=== PATIENT | male | born 1970 | race Caucasian/White ===

== ENCOUNTER → 2020-05-18 17:57 | Outpatient (BNVA) | payer SELFPAY | PROVIDERS: PCP Nurse Practitioner Family; Visit Provider Nurse Practitioner | DX: R50.9 Fever, unspecified (principal) | CPT/HCPCS: 87400 ==

== ENCOUNTER 2020-08-28 10:46 | Emergency (ER) | payer SELFPAY ==
[2020-08-28] VITALS (8 sets, daily range): BP systolic 151–191; BP diastolic 76–103; PULSE 70–93; RESP 16–20; TEMP 36.7; O2SAT 93–100; BMI 36.2
--- NOTE | 2020-08-28 11:45 | XR_ITS ---
WS: [id number] PORTABLE CHEST HISTORY: chest pain COMPARISON: None available. Lungs are clear and well expanded. No pleural effusion or pneumothorax. Cardiac size: Normal. Mediastinum/Aorta: Normal mediastinum. No osseous abnormality seen. XR/XR chest 1V portable [id number] IMPRESSION: Unremarkable portable chest.
--- NOTE | 2020-08-28 11:45 | ECG_ITS ---
[facility] Test Date: 2020-08-28 Pat Name: Eran Humphrey Department: Room: Gender: Male Character Artist: : 1970 Requested By: Niurka Soto Order Number: [id number] Shawn MD: Jackson Mcnally M.D. Measurements Intervals [place] Rate: 86 P: 40 [place]: 166 QRS: -50 QRSD: 126 T: 8 QT: 395 QTc: 473 Interpretive Statements SINUS RHYTHM POSSIBLE LEFT ATRIAL ENLARGEMENT [-0.1mV P WAVE IN V1/V2] LEFT ANTERIOR FASCICULAR BLOCK [QRS AXIS <= -45, QR IN I, RS IN II] No previous ECG available for comparison Electronically Signed On 08-28-2020 17:10:15 GAS USAGE METER CLERK by Jackson Mcnally M.D. [id number]
--- NOTE | 2020-08-28 13:31 | ED_ITS ---
HPI - Headache General: Chief Complaint: Headache Stated Complaint: Nervous/Headache/chest feeling off Time Seen by Provider: 08/28/20 13:13 History of Present Illness: HPI Narrative: 49-year-old male presents emergency room with complaint of headache. Is been getting progressively worse is not any difficulty speech or swallowing states his vision is a little blurry just generally feels off he does not usually have headaches. He states that since he had Covid in April he is chronically had headaches but prior to that had no issues. Is not had any shortness of breath not had any chest pain not had any abdominal pain. He is not currently on any antihypertensives or any other medications. Is not routinely use large amounts of caffeine or energy drinks. MD elicited complaint: headache Pertinent past history: other (COVID-09 May 2020) Onset description: gradually Location: left, temporal and occipital Severity: severe Quality & Timing: throbbing Exacerbating factors: none Relieving factors: nothing Associated symptoms: Deny chest pain, confusion, cough, diaphoresis, eye pain, eye redness, fever(s), lightheadedness, loss of vision, malaise, nausea, neck stiffness, numbness, paresthesias, photophobia, pre-syncope, rash, seizures, short of breath, sound sensitivity, syncope, vomiting or weakness Treatments prior to arrival: none Review of Systems Const: Denies: fever(s), malaise or diaphoresis ENMT: Denies: throat pain, ear or mastoid pain, nasal discharge or nasal congestion Card: Denies: chest pain, lightheadedness, syncope or pre-syncope Resp: Denies: dyspnea, productive cough or non-productive cough GI: Denies: nausea or vomiting : Denies: flank pain, dysuria, urinary frequency or urinary urgency Skin/Breast: Denies: rash Neuro: Denies: confusion PFSH ED PFSH: Social History Smoking and tobacco status: never smoked Physical Exam Const: COMMON NORMALS: no acute distress GENERAL APPEARANCE: cooperative an d comfortable ORIENTATION/CONSCIOUSNESS: Yes awake, Yes oriented to person, Yes oriented to place and Yes oriented to time HENMT: COMMON NORMALS: normocephalic, atraumatic and hearing grossly normal bilaterally HEAD & SCALP: normocephalic and atraumatic Eye: COMMON NORMALS: Equal, round and reactive pupils present, EOMs intact bilaterally, conjunctivae normal and no scleral icterus CONJUNCTIVA: Yes conjunctivae normal PUPIL: Yes Equal, round and reactive pupils present DIRECT OPHTHALMOSCOPY: No photophobia Neck/C-Spine: COMMON NORMALS: full ROM, no lymphadenopathy, supple and no JVD Lymph: LYMPHATIC: no lymphadenopathy noted and no lymphedema noted Resp: COMMON NORMALS: normal respiratory effort, No retractions, No use of accessory muscles and clear to auscultation bilaterally AUSCULTATION: clear to auscultation bilaterally Cardio: COMMON NORMALS: no JVD, regular rate, regular rhythm and No murmurs present (Cardio) RATE: regular rate RHYTHM: regular rhythm GI: COMMON NORMALS: Soft to palpation and No hepatosplenomegaly present AUSCULTATION: Yes normoactive bowel sounds PALPATION: Yes Soft to palpation, No Tenderness to palpation present (GI), No Guarding due to palpation present (GI) and Yes No hepatosplenomegaly present Extremity: COMMON NORMALS: normal to inspection, capillary refill normal, no clubbing, cyanosis or edema, no calf tenderness and no pedal edema Neuro: SENSORIUM/ORIENTATION: Yes oriented to person, Yes oriented to place and Yes oriented to time Skin: COMMON NORMALS: no rashes or lesions noted GENERAL SKIN EXAM: no rashes or lesions noted Course Vital Signs: Vital signs: Vital Signs Temperature 98.0 F 08/28/20 10:53 Pulse Rate 72 08/28/20 16:40 Respiratory Rate 18 08/28/20 16:40 Blood Pressure 152/77 08/28/20 16:40 Pulse Oximetry 98 08/28/20 16:40 MDM - Headache MDM Narrative: Medical decision making narrative: Blood pressure and headache improved. Will discharge home on amlodipine and metoprolol follow-up with his primary care doctor within the next week. If recurs return to the emergency room. Lab Data: Labs: Lab Results 08/28/20 08/28/20 08/28/20 Range/Units 13:34 13:34 13:34 WBC 8.5 (4.0-10.0) 10^3/ uL RBC 5.71 H (4.1-5.3) 10^6/u L Hgb 16.0 (11.7-16.6) g/dL Hct 48.4 (42.0-52.0) % MCV 84.8 (80-94) fL MCH 28.0 (28.0-34.0) pg MCHC 33.1 (30.0-36.0) g/dL RDW 12.5 (12.1-15.1) % Plt Count 259 (130-400) 10^3/c mm MPV 9.9 (7.4-10.4) fL Neut % (Auto) 70.8 % Lymph % (Auto) 20.0 % [place] % (Auto) 6.6 % Eos % (Auto) 1.6 % Baso % (Auto) 0.6 % Neut # (Auto) 6.02 (1.8-7.7) 10^3/u L Lymph # (Auto) 1.7 (0.8-4.8) 10^3/u L [place] # (Auto) 0.6 (0.2-0.9) 10^3/u L Eos # (Auto) 0.1 (0.0-0.8) 10^3/u L Baso # (Auto) 0.1 (0.0-0.1) 10^3/u L Nucleated RBC % (a uto) 0 % Nucleated RBCs # 0.0 /100WBC Sodium 140 (136-145) mmol/L Potassium 3.6 (3.5-5.1) mmol/L Chloride 103 (98-107) mmol/L Carbon Dioxide 26 (22-29) mmol/L Anion Gap 14.6 (5-19) BUN 11 (6-20) mg/dL Creatinine 0.7 (0.7-1.2) mg/dL GFR Calculation 119.9 (90-130) mL/min Glucose 123 H (65-115) mg/dL Calculated Osmolal ity 291 (285-295) mOsm/k g Calcium 9.5 (8.5-10.5) mg/dL Total Bilirubin 0.5 (0.15-1.2) mg/dL AST 16 (0-40) U/L ALT 21 (0-41) U/L Alkaline Phosphata se 92 (40-130) IU/L Troponin T Baselin e 6 (0-15) ng/L Troponin T 120 Min [place] (0-15) ng/L Delta Troponin T (0-10) ABS# Total Protein 7.3 (6.6-8.7) g/dL Albumin 4.6 (3.5-5.2) g/dL Globulin 2.7 (1.3-4.6) g/dL Urine Opiates Scre en (Negative) ng/mL Ur Barbiturates Sc reen (Negative) ng/mL Ur Phencyclidine S crn (Negative) ng/mL Ur Amphetamines Sc reen (Negative) ng/mL U Benzodiazepines Scrn (Negative) ng/mL Urine Cocaine Scre en (Negative) ng/mL U Marijuana (THC) Screen (Negative) ng/mL 08/28/20 08/28/20 Range/Units 13:53 15:34 WBC (4.0-10.0) 10^3/ uL RBC (4.1-5.3) 10^6/u L Hgb (11.7-16.6) g/dL Hct (42.0-52.0) % MCV (80-94) fL MCH (28.0-34.0) pg MCHC (30.0-36.0) g/dL RDW (12.1-15.1) % Plt Count (130-400) 10^3/c mm MPV (7.4-10.4) fL Neut % (Auto) % Lymph % (Auto) % [place] % (Auto) % Eos % (Auto) % Baso % (Auto) % Neut # (Auto) (1.8-7.7) 10^3/u L Lymph # (Auto) (0.8-4.8) 10^3/u L [place] # (Auto) (0.2-0.9) 10^3/u L Eos # (Auto) (0.0-0.8) 10^3/u L Baso # (Auto) (0.0-0.1) 10^3/u L Nucleated RBC % (a uto) % Nucleated RBCs # /100WBC Sodium (136-145) mmol/L Potassium (3.5-5.1) mmol/L Chloride (98-107) mmol/L Carbon Dioxide (22-29) mmol/L Anion Gap (5-19) BUN (6-20) mg/dL Creatinine (0.7-1.2) mg/dL GFR Calculation (90-130) mL/min Glucose (65-115) mg/dL Calculated Osmolal ity (285-295) mOsm/k g Calcium (8.5-10.5) mg/dL Total Bilirubin (0.15-1.2) mg/dL AST (0-40) U/L ALT (0-41) U/L Alkaline Phosphata se (40-130) IU/L Troponin T Baselin e (0-15) ng/L Troponin T 120 Min [place] 6.00 (0-15) ng/L Delta Troponin T 0 (0-10) ABS# Total Protein (6.6-8.7) g/dL Albumin (3.5-5.2) g/dL Globulin (1.3-4.6) g/dL Urine Opiates Scre en Negative (Negative) ng/mL Ur Barbiturates Sc reen Negative (Negative) ng/mL Ur Phencyclidine S crn Negative (Negative) ng/mL Ur Amphetamines Sc reen Negative (Negative) ng/mL U Benzodiazepines Scrn Negative (Negative) ng/mL Urine Cocaine Scre en Negative (Negative) ng/mL U Marijuana (THC) Screen Negative (Negative) ng/mL Discharge Plan Discharge Patient Disposition: Home Clinical Impression: Headache, Hypertension Condition: Stable Prescriptions: New metoprolol succinate 25 mg capsule,sprinkle,ER 24hr 25 mg PO DAILY Qty: 14 RF: 0 amlodipine 5 mg tablet 5 mg PO DAILY Qty: 14 RF: 0 promethazine 25 mg tablet 25 mg PO Q6H PRN (Reason: prn headache) Qty: 14 RF: 0 No Action No Known Home Medications RF: 0 Discharge Orders: Discharge ED (Routine); Ordered 08/28/20 Ordered By: Nolan Abad Referrals: Tomasa Alves FNP [Primary Care Provider] - Discharge Diet: Usual diet Discharge Activity: Increase activity as tolerated Coding Level of Care Code ED Mix House Operator for Isidro Fwd Exam Comprehensive
[2020-08-28 13:43] LABS: Basophils # 0.1 10^3/uL (0.0-0.1); Basophils % 0.6 %; Eosinophils # 0.1 10^3/uL (0.0-0.8); Eosinophils % 1.6 %; Hematocrit 48.4 % (42.0-52.0); Lymphocytes # 1.7 10^3/uL (0.8-4.8); Mean Corpuscular HGB Conc 33.1 g/dL (30.0-36.0); Mean Corpuscular Volume 84.8 fL (80-94); Mean Platelet Volume 9.9 fL (7.4-10.4); Monocytes # 0.6 10^3/uL (0.2-0.9); Monocytes % 6.6 %; Neutrophils # 6.02 10^3/uL (1.8-7.7); Neutrophils % 70.8 %; Nucleated Red Blood Cells % 0 %; Platelet Count 259 10^3/cmm (130-400); Red Blood Count 5.71 10^6/uL (4.1-5.3); Red Cell Distribution Width 12.5 % (12.1-15.1); White Blood Count 8.5 10^3/uL (4.0-10.0)
--- NOTE | 2020-08-28 13:45 | ECG_ITS ---
[facility] Test Date: 2020-08-28 Pat Name: Eran Humphrey Department: Room: Gender: Male Detasseler: : 1970 Requested By: Niurka Soto Order Number: [id number] Shawn MD: Jackson Mcnally M.D. Measurements Intervals [place] Rate: 79 P: 57 NE: 163 QRS: -41 QRSD: 126 T: 38 QT: 390 QTc: 448 Interpretive Statements SINUS RHYTHM POSSIBLE LEFT ATRIAL ENLARGEMENT [-0.1mV P WAVE IN V1/V2] LEFT AXIS DEVIATION [QRS AXIS < -30] MODERATE INTRAVENTRICULAR CONDUCTION DELAY [110+ ms QRS DURATION] Compared to ECG 08/28/2020 12:26:40 Left-axis deviation now present Intraventricular conduction delay now present Left anterior fascicular block no longer present Electronically Signed On 08-28-2020 17:21:04 MAT MACHINE TENDER by Jackson Mcnally M.D. [id number]
[2020-08-28] MEDS: amlodipine 5 mg Tablet PO (13:49)
[2020-08-28] MEDS: metoprolol tartrate 25 mg Tablet PO (13:50)
[2020-08-28] MEDS: metoprolol tartrate 1 mg/1 mL SDV 5 mL 5 MG IV (13:50)
[2020-08-28 13:59] LABS: Alanine Aminotransferase 21 U/L (0-41); Albumin Level 4.6 g/dL (3.5-5.2); Alkaline Phosphatase 92 IU/L (40-130); Anion Gap 14.6 (5-19); Aspartate Amino Transferase 16 U/L (0-40); Blood Urea Nitrogen 11 mg/dL (6-20); Calcium 9.5 mg/dL (8.5-10.5); Carbon Dioxide 26 mmol/L (22-29); Chloride 103 mmol/L (98-107); Globulin 2.7 g/dL (1.3-4.6); Glomerular Filtration Rate 119.9 mL/min (90-130); Glucose 123 mg/dL (65-115); Osmolality Calculated 291 mOsm/kg (285-295); Potassium 3.6 mmol/L (3.5-5.1); Sodium 140 mmol/L (136-145); Total Bilirubin 0.5 mg/dL (0.15-1.2); Total Protein 7.3 g/dL (6.6-8.7)
[2020-08-28 14:03] LABS: Troponin(5th) Baseline 6 ng/L (0-15)
[2020-08-28 14:31] LABS: Amphetamines Screen Urine Negative (Negative); Barbiturates Screen Urine Negative (Negative); Benzodiazepines Screen Urine Negative (Negative); Cocaine Screen Urine Negative (Negative); Opiate Screen Urine Negative (Negative); PCP Screen Urine Negative (Negative); THC Screen Urine Negative (Negative)
--- NOTE | 2020-08-28 14:56 | CT_ITS ---
WS: [id number] CT HEAD NONCONTRAST HISTORY: new onset headache TECHNIQUE: Contiguous axial imaging performed through the brain in 2.5 mm imaging. Bone and soft tiss ue windows. Sagittal and coronal reformats reviewed. All CT scans at [facility] use at ast one of these dose optimization techniques: automated exposure control; mA and/or kV adjustment pe r patient size (includes targeted exams where dose is matched to clinical indication); or iterative r econstruction. DLP: 792.55 mGy.cm COMPARISON: None available. No acute intracranial hemorrhage, midline shift or mass effect. No atrophy or prior infarcts or herniation. Tiny lacunar infarct is remote in the LEFT basal ganglia . Ventricles: Normal size with no hydrocephalus. Paranasal sinuses: As visualized are clear. Mastoid air cells: Well pneumatized. Calvarium and scalp: Skull is intact with no soft tissue edema or swelling. CT/CT head wo con* [id number] IMPRESSION: 1. No acute infarct, hemorrhage or edema. 2. Remote lacunar infarct LEFT basal ganglia.
[2020-08-28] MEDS: ketorolac 30 mg/mL INJ IVP (15:14)
[2020-08-28 16:59] LABS: Troponin 5 2HR Delta 0 ABS# (0-10)
== END 2020-08-28 16:42 | disposition home or self-care (01) ==
PROVIDERS: Physician Assistant; Emergency Provider Family Medicine; PCP Nurse Practitioner Family
DX: R51.9 Headache, unspecified (principal); I10 Essential (primary) hypertension
CPT/HCPCS: 12345; 70450; 71045; 80053; 80306; 84484; 85025; 93005; 96374; 96375; 99282; 99284; J1885; J2270; J2550; J3490

== ENCOUNTER 2021-04-05 01:55 | Emergency (ER) | payer SELFPAY ==
[2021-04-05 01:58] VITALS: BP 186/93; PULSE 83; RESP 18; TEMP 36.9; O2SAT 98; BMI 36.2
--- NOTE | 2021-04-05 02:10 | CTR_ITS ---
PROCEDURE INFORMATION: Exam: CT Abdomen And Pelvis Without Contrast Exam date and time: 04/05/2021 2:10 AM Age: 50 years old Clinical indication: Abdominal pain; Right; Patient HX: C/O R flank pain; Additional info: Right flank pain, history of kidney stones TECHNIQUE: Imaging protocol: Computed tomography of the abdomen and pelvis without contrast. Radiation optimization: All CT scans at this facility use at least one of these dose optimization techniques: automated exposure control; mA and/or kV adjustment per patient size (includes targeted exams where dose is matched to clinical indication); or iterative reconstruction. COMPARISON: CT Abdomen/Pelvis Renal [id number] 07/21/2019 5:41 PM RADIATION DOSE METRICS: Total DLP (mGy-cm): 2107.81 FINDINGS: Lungs: Calcified granulomata in the lung bases again evident. Liver: Liver still unremarkable. Gallbladder and bile ducts: Cholecystectomy again evident. Still no biliary ductal dilatation. Pancreas: Pancreas still unremarkable. Spleen: Still no splenomegaly. Interval disappearance of the focus of decreased density from the anterior superior splenic margin and appearance of the 6 mm focus of decreased density in the lower lateral splenic margin. Adrenal glands: Still no adrenal mass. Kidneys and ureters: Interval disappearance of a very small stone from the upper left kidney. Still no left hydronephrosis. Interval disappearance of a small stone from the upper right kidney and appearance of a tiny stone in this area. Interval [id number] right hydronephrosis, stranding in the right perirenal fat and moderate right ureteral dilatation down to the level of the 4.2 x 2.5 mm stone in the very distal right ureter. Stomach and bowel: Continued increased fat in the mehta of the gastric antrum, proximal duodenum and terminal ileum. Still no obstruction. Appendix: Continued normal appendix. Intraperitoneal space: Still no free air. Vasculature: Continued minimal atherosclerosis. Still no aortic aneurysm. Two right renal arteries still likely. Lymph nodes: Continued small calcified node along the right side of the distal esophagus. Interval decrease in size to normal of a right external iliac node. Interval slight haziness in the mesentery, except for thin zones of lucency around some of the mesenteric nodes; continued slight enlargement of some of the mesenteric nodes. No new suspicious nodes. Urinary bladder: Unremarkable as visualized. Reproductive: Continued prostatic prominence. Bones/joints: Old compression fractures again evident. Continued degeneration of several discs. Soft tissues: Unremarkable. CT/CT kidney stone [id number] IMPRESSION: 1. Interval appearance of the 4.2 x 2.5 mm stone in the very distal right ureter causing mild to moderate obstruction. Changes in the nephrolithiasis detailed above. 2. Interval disappearance of 1 focus of decreased density from the spleen and appearance of a smaller focus elsewhere in the spleen, significance unclear. Consider evaluation with non-emergent MRI. 3. Interval appearance of findings suggestive of mesenteric adenitis. 4. Continued increased fat in the mehta of the gastric antrum, proximal duodenum and terminal ileum raising the possibility of chronic inflammation. Other findings detailed above. Radiation Dose CTDIVOL = (mGy): DLP = 2107.81 (mGy-cm)
--- NOTE | 2021-04-05 02:11 | ED_ITS ---
Documented by User: ALEXANDER Hilario 04/05/21 03:19 HPI - Abdominal Pain General: Chief Complaint: Abdominal Pain Stated Complaint: LOWER R BACK AND ABD PAIN Time Seen by Provider: 04/05/21 02:10 History of Present Illness: HPI narrative: Patient is a 50-year-old male comes to the ED with right flank pain. First onset of symptoms started last Monday, March 31. Resolved after couple hours and patient has a prescription for ketorolac pain as needed and tamsulosin daily. Patient then had another onset of's right flank pain yesterday that resolved again after couple hours. Today at midnight he woke up with severe right flank pain radiating down into her right groin again. Pain is rated an 8 out of 10. Patient says he took a dose of ketorolac at 1 AM before coming to the ED. Denies any fever, chills, nausea/vomiting, bladder or bowel symptoms. Patient says he has a history of kidney stones and says that the symptoms are similar to past kidney stones. Associated Symptoms: Denies chills, constipation, diarrhea, dysuria, fever(s), hematochezia, hematuria, nausea and vomiting Review of Systems Const: Denies: fever(s), chills or fatigue Eyes: Denies: change in vision or eye discomfort ENMT: Denies: throat pain, odynophagia, nasal discharge or nasal congestion Card: Denies: chest pain, palpitations, edema, swelling of feet/ankles, dyspnea on exertion or orthopnea Resp: Denies: dyspnea, productive cough or non-productive cough GI: Denies: abdominal pain, nausea, vomiting, diarrhea, constipation or hematochezia : Reports: flank pain (Right flank and pain radiates in the right groin.); Denies: difficulty urinating, dysuria or hematuria Musc: Denies: neck pain, back pain or extremity swelling Skin/Breast: Denies: rash or new lesions Neuro: Denies: headache(s), numbness in extremities or weakness in extremities PFSH ED PFSH: Social History Smoking and tobacco status: never smoked Physical Exam Const: COMMON NORMALS: patient oriented x3 and alert GENERAL APPEARANCE: cooperative, comfortable and in distress (Patient appears in pain) HENMT: COMMON NORMALS: normocephalic HEAD & SCALP: normocephalic MOUTH: Normal oral and palatal mucosa present THROAT: posterior oropharynx normal and uvula midline Eye: COMMON NORMALS: Equal, round and reactive pupils present PUPIL: Yes Equal, round and reactive pupils present Neck/C-Spine: COMMON NORMALS: supple GENERAL: Yes normal visual inspection Resp: COMMON NORMALS: normal respiratory effort, No retractions, No use of accessory muscles and clear to auscultation bilaterally AUSCULTATION: clear to auscultation bilaterally Cardio: COMMON NORMALS: regular rate, regular rhythm, S1 normal heart sound present, S2 normal heart sound present, No gallops present (Cardio), No clicks present (Cardio), No murmurs present (Cardio) and Peripheral pulses 2+ throughout RATE: regular rate RHYTHM: regular rhythm HEART SOUNDS: S1 normal heart sound present and S2 normal heart sound present PERIPHERAL PULSES: Peripheral pulses 2+ throughout GI: COMMON NORMALS: Normal to inspection, nondistended, normoactive bowel sounds present, Soft to palpation, non-tender and no masses INSPECTION: Yes central obesity PALPATION: Yes Soft to palpation : BLADDER/KIDNEY EXAM: Yes CVA tenderness on the right Back/Pelvis: GENERAL BACK: Yes CVA tenderness Extremity: COMMON NORMALS: normal to inspection Neuro: COMMON NORMALS: patient oriented x3 SENSORIUM/ORIENTATION: Yes alert Skin: GENERAL SKIN EXAM: dry skin Course Vital Signs: Vital signs: Vital Signs Temperature 98.4 F 04/05/21 01:58 Pulse Rate 81 04/05/21 03:15 Respiratory Rate 18 04/05/21 03:37 Blood Pressure 142/95 04/05/21 03:15 Pulse Oximetry 97 04/05/21 03:37 MDM - Abdominal Pain MDM Narrative: Medical decision making narrative: I performed the initial history physical exam, lab work-up and imaging on patient. Then talked with Dr. Naranjo about patient case and signed care over to him before I left. Patient is a 50-year-old male comes to the ED with right flank pain. He has a history of kidney stones. Denies any dysuria or hematuria. Vital stable. Patient has some right CVA tenderness upon exam. Patient CBC and CMP were unremarkable. I told Dr. Naranjo UA and CT of the abdomen is pending and he will take over care of patient and handle discharge.-Arpit Sheffield PA-C Lab Data: Attestation: I reviewed the patient's lab results. Labs: Lab Results 04/05/21 04/05/21 04/05/21 Range/Units 02:10 02:10 02:30 WBC 8.2 (4.0-10.0) 10^3/ uL RBC 5.05 (4.1-5.3) 10^6/u L Hgb 14.4 (11.7-16.6) g/dL Hct 42.9 (42.0-52.0) % MCV 85.0 (80-94) fl MCH 28.5 (28.0-34.0) pg MCHC 33.6 (30.0-36.0) g/dL RDW 12.4 (12.1-15.1) % Plt Count 273 (130-400) 10^3/c mm MPV 10.0 (7.4-10.4) fL Neut % (Auto) 58.9 % Lymph % (Auto) 24.0 % [place] % (Auto) 10.8 % Eos % (Auto) 4.9 % Baso % (Auto) 0.9 % Neut # (Auto) 4.81 (1.8-7.7) 10^3/u L Lymph # (Auto) 2.0 (0.8-4.8) 10^3/u L [place] # (Auto) 0.9 (0.2-0.9) 10^3/u L Eos # (Auto) 0.4 (0.0-0.8) 10^3/u L Baso # (Auto) 0.1 (0.0-0.1) 10^3/u L Nucleated RBC % (a uto) 0 % Nucleated RBCs # 0.0 /100WBC Sodium 142 (136-145) mmol/L Potassium 3.5 (3.5-5.1) mmol/L Chloride 106 (98-107) mmol/L Carbon Dioxide 27 (22-29) mmol/L Anion Gap 12.5 (5-19) BUN 15 (6-20) mg/dL Creatinine 1.0 (0.7-1.2) mg/dL GFR Calculation 79.1 L (90-130) mL/min Glucose 123 H (65-115) mg/dL Calculated Osmolal ity 296 H (285-295) mOsm/k g Calcium 8.3 L (8.5-10.5) mg/dL Total Bilirubin 0.2 (0.15-1.2) mg/dL AST 16 (0-40) U/L ALT 15 (0-41) U/L Alkaline Phosphata se 91 (40-130) IU/L Total Protein 6.8 (6.6-8.7) g/dL Albumin 4.0 (3.5-5.2) g/dL Globulin 2.8 (1.3-4.6) g/dL Lipase 38 (13-60) U/L Urine Color Yellow (Yellow) Urine Appearance Sl hazy (CLEAR) Urine pH 8 H (5-7) Ur Specific Gravit y 1.015 (1.005-1.030) Urine Protein Neg (Negative) Urine Glucose (UA) Norm (Normal) Urine Ketones Negative (Negative) Urine Blood Neg (Negative) Urine Nitrate Negative (Negative) Urine Bilirubin Neg (Negative) Prot Sulfosalicyli c Acd Negative (Negative) Urine Urobilinogen Norm (Negative) mg/dL Ur Leukocyte Tena ase Negative (Negative) Urine RBC None (0-2) /hpf Urine WBC None (0-5) /hpf Ur Squamous Epith Cells None (0-5) /hpf Amorphous Sediment 2+ /hpf Urine Bacteria Trace (NONE) /hpf Discharge Plan Discharge Patient Disposition: Home Clinical Impression: Ureterolithiasis Condition: Stable Prescriptions: New Zofran 4 mg tablet 4 mg PO Q6H PRN (Reason: nausea and vomiting) Qty: 10 RF: 0 Percocet 7.5-325 mg tablet 1 tab PO Q6H PRN (Reason: pain) Qty: 10 RF: 0 No Action metoprolol succinate 25 mg capsule,sprinkle,ER 24hr 25 mg PO DAILY Qty: 14 RF: 0 amlodipine 5 mg tablet 5 mg PO DAILY Qty: 14 RF: 0 promethazine 25 mg tablet 25 mg PO Q6H PRN (Reason: prn headache) Qty: 14 RF: 0 Discharge Orders: Discharge ED (Routine); Ordered 04/05/21 Ordered By: Brian Naranjo Referrals: Cameron Sherman MD [Physician] - 1-3 days Tomasa Alves FNP [Primary Care Provider] - Patient Instructions: Kidney Stones (ED), Opioid Safety Activity Restrictions/Additional Instructions: Continue your ketorolac, as needed for pain. Continue your tamsulosin daily. You may use new prescriptions of medication as needed for pain and nausea as well. You should get a call from case management regarding a urology appointment. Return to the emergency department for vomiting liquids or medications, uncontrolled pain despite treatment, fever greater than 100, any other concerning symptoms. Coding Level of Care Code ED Liner Reroll Tender for Chg Fwd Exam Comprehensive Documented by User: Brian Naranjo DO 04/05/21 04:24 HPI - Abdominal Pain General: Chief Complaint: Abdominal Pain Stated Complaint: LOWER R BACK AND ABD PAIN Time Seen by Provider: 04/05/21 02:10 [facility] ED PFSH: Social History Smoking and tobacco status: never smoked Course Vital Signs: Vital signs: Vital Signs Temperature 98.4 F 04/05/21 01:58 Pulse Rate 81 04/05/21 03:15 Respiratory Rate 18 04/05/21 03:37 Blood Pressure 142/95 04/05/21 03:15 Pulse Oximetry 97 04/05/21 03:37 MDM - Abdominal Pain MDM Narrative: Medical decision making narrative: 50-year-old male with right- sided flank and abdominal pain. Checked out to me by Mr. Nettie RODRIGUEZ. I agree with his history, evaluation and management. Pain controlled now after IV fentanyl. CT reveals 4.2 x 2.5 mm stone in the very distal right ureter. He has ketorolac at home as well as tamsulosin. He will be prescribed Percocet and Zofran as well. Urinalysis reveals no evidence of infection. Creatinine is 1. White blood cell count is 8.2. Lab Data: Labs: Lab Results 04/05/21 04/05/21 04/05/21 Range/Units 02:10 02:10 02:30 WBC 8.2 (4.0-10.0) 10^3/ uL RBC 5.05 (4.1-5.3) 10^6/u L Hgb 14.4 (11.7-16.6) g/dL Hct 42.9 (42.0-52.0) % MCV 85.0 (80-94) fl MCH 28.5 (28.0-34.0) pg MCHC 33.6 (30.0-36.0) g/dL RDW 12.4 (12.1-15.1) % Plt Count 273 (130-400) 10^3/c mm MPV 10.0 (7.4-10.4) fL Neut % (Auto) 58.9 % Lymph % (Auto) 24.0 % [place] % (Auto) 10.8 % Eos % (Auto) 4.9 % Baso % (Auto) 0.9 % Neut # (Auto) 4.81 (1.8-7.7) 10^3/u L Lymph # (Auto) 2.0 (0.8-4.8) 10^3/u L [place] # (Auto) 0.9 (0.2-0.9) 10^3/u L Eos # (Auto) 0.4 (0.0-0.8) 10^3/u L Baso # (Auto) 0.1 (0.0-0.1) 10^3/u L Nucleated RBC % (a uto) 0 % Nucleated RBCs # 0.0 /100WBC Sodium 142 (136-145) mmol/L Potassium 3.5 (3.5-5.1) mmol/L Chloride 106 (98-107) mmol/L Carbon Dioxide 27 (22-29) mmol/L Anion Gap 12.5 (5-19) BUN 15 (6-20) mg/dL Creatinine 1.0 (0.7-1.2) mg/dL GFR Calculation 79.1 L (90-130) mL/min Glucose 123 H (65-115) mg/dL Calculated Osmolal ity 296 H (285-295) mOsm/k g Calcium 8.3 L (8.5-10.5) mg/dL Total Bilirubin 0.2 (0.15-1.2) mg/dL AST 16 (0-40) U/L ALT 15 (0-41) U/L Alkaline Phosphata se 91 (40-130) IU/L Total Protein 6.8 (6.6-8.7) g/dL Albumin 4.0 (3.5-5.2) g/dL Globulin 2.8 (1.3-4.6) g/dL Lipase 38 (13-60) U/L Urine Color Yellow (Yellow) Urine Appearance Sl hazy (CLEAR) Urine pH 8 H (5-7) Ur Specific Gravit y 1.015 (1.005-1.030) Urine Protein Neg (Negative) Urine Glucose (UA) Norm (Normal) Urine Ketones Negative (Negative) Urine Blood Neg (Negative) Urine Nitrate Negative (Negative) Urine Bilirubin Neg (Negative) Prot Sulfosalicyli c Acd Negative (Negative) Urine Urobilinogen Norm (Negative) mg/dL Ur Leukocyte Tena ase Negative (Negative) Urine RBC None (0-2) /hpf Urine WBC None (0-5) /hpf Ur Squamous Epith Cells None (0-5) /hpf Amorphous Sediment 2+ /hpf Urine Bacteria Trace (NONE) /hpf Discharge Plan Discharge Patient Disposition: Home Clinical Impression: Ureterolithiasis Condition: Stable Prescriptions: New Zofran 4 mg tablet 4 mg PO Q6H PRN (Reason: nausea and vomiting) Qty: 10 RF: 0 Percocet 7.5-325 mg tablet 1 tab PO Q6H PRN (Reason: pain) Qty: 10 RF: 0 No Action metoprolol succinate 25 mg capsule,sprinkle,ER 24hr 25 mg PO DAILY Qty: 14 RF: 0 amlodipine 5 mg tablet 5 mg PO DAILY Qty: 14 RF: 0 promethazine 25 mg tablet 25 mg PO Q6H PRN (Reason: prn headache) Qty: 14 RF: 0 Discharge Orders: Discharge ED (Routine); Ordered 04/05/21 Ordered By: Brian Naranjo Referrals: Cameron Sherman MD [Physician] - 1-3 days Tomasa Alves FNP [Primary Care Provider] - Patient Instructions: Kidney Stones (ED), Opioid Safety Activity Restrictions/Additional Instructions: Continue your ketorolac, as needed for pain. Continue your tamsulosin daily. You may use new prescriptions of medication as needed for pain and nausea as well. You should get a call from case management regarding a urology appointment. Return to the emergency department for vomiting liquids or medications, uncontrolled pain despite treatment, fever greater than 100, any other concerning symptoms. Coding Level of Care Code ED Liner Reroll Tender for Isidro Fwd Exam Comprehensive
[2021-04-05 02:24] LABS: Basophils # 0.1 10^3/uL (0.0-0.1); Basophils % 0.9 %; Eosinophils # 0.4 10^3/uL (0.0-0.8); Eosinophils % 4.9 %; Hematocrit 42.9 % (42.0-52.0); Hemoglobin 14.4 g/dL (11.7-16.6); Mean Corpuscular HGB Conc 33.6 g/dL (30.0-36.0); Mean Corpuscular Hemoglobin 28.5 pg (28.0-34.0); Monocytes # 0.9 10^3/uL (0.2-0.9); Monocytes % 10.8 %; Neutrophils # 4.81 10^3/uL (1.8-7.7); Neutrophils % 58.9 %; Nucleated Red Blood Cells % 0 %; Platelet Count 273 10^3/cmm (130-400); Red Blood Count 5.05 10^6/uL (4.1-5.3); Red Cell Distribution Width 12.4 % (12.1-15.1); White Blood Count 8.2 10^3/uL (4.0-10.0)
[2021-04-05] MEDS: sodium chloride 0.9% 500 ML 999 ML IV (02:37)
[2021-04-05] MEDS: ondansetron 2 mg/ML SDV 2 mL 4 MG IVP (02:37)
[2021-04-05 02:38] VITALS: RESP 20; O2SAT 97
[2021-04-05] MEDS: fentaNYL 50 mcg/mL INJ 2mL IVP (02:38)
[2021-04-05 02:48] LABS: Alanine Aminotransferase 15 U/L (0-41); Alkaline Phosphatase 91 IU/L (40-130); Aspartate Amino Transferase 16 U/L (0-40); Blood Urea Nitrogen 15 mg/dL (6-20); Calcium 8.3 mg/dL (8.5-10.5); Carbon Dioxide 27 mmol/L (22-29); Chloride 106 mmol/L (98-107); Globulin 2.8 g/dL (1.3-4.6); Glomerular Filtration Rate 79.1 mL/min (90-130); Glucose 123 mg/dL (65-115); Lipase 38 U/L (13-60); Osmolality Calculated 296 mOsm/kg (285-295); Sodium 142 mmol/L (136-145); Total Bilirubin 0.2 mg/dL (0.15-1.2); Total Protein 6.8 g/dL (6.6-8.7)
[2021-04-05 03:11] LABS: Anion Gap 12.5 (5-19); Potassium 3.5 mmol/L (3.5-5.1)
[2021-04-05 03:14] LABS: Add Urine Culture? No; Amorphous Sediment Urine 2+ /hpf; Bacteria Urine TRACE /hpf; Bilirubin Urine Neg (Negative); Blood Urine Neg (Negative); Glucose Urine UA Norm (Normal); Ketones Urine Negative (Negative); Leukocyte Esterase Urine Negative (Negative); Nitrate Urine Negative (Negative); Protein Urine Neg (Negative); Specific Gravity, Urine 1.015 (1.005-1.030); Sulfosalicylic Acid Urine Negative (Negative); Urine Appearance SL Hazy (CLEAR); Urine Color Yellow (Yellow); Urobilinogen Urine Norm (Negative); pH Urine 8 (5-7)
[2021-04-05 03:15] VITALS: BP 142/95; PULSE 81; O2SAT 97
[2021-04-05 03:37] VITALS: RESP 18; O2SAT 97
[2021-04-05] MEDS: fentaNYL 50 mcg/mL INJ 2mL 100 MCG IVP (03:37)
[2021-04-05] MEDS: ondansetron 4 MG Tablet 8 MG PO (04:38)
[2021-04-05] MEDS: oxyCODONE-APAP 10-325 mg Tablet 2 TAB PO (04:38)
[2021-04-05 04:50] VITALS: BP 127/78; PULSE 81; RESP 22; TEMP 36.8; O2SAT 97
--- NOTE | 2021-04-05 12:00 | DCPLANNER ---
communications station manager had message to schedule a follow up appointment for patient with Dr. Sherman. communications station manager called the office of Dr. Sherman, spoke with Florecita, gave clinic patients information. communications station manager was told that patients information would be printed and reviewed. Clinic will call patient with appointment information.
--- NOTE | 2021-04-06 14:18 | DCPLANNER ---
Patient has a follow up appointment scheduled for Monday, April 07, 2021 at 1:[address] Sherman. Clinic will call patient with appointment information.
--- NOTE | 2021-04-08 12:01 | DCPLANNER ---
Patient had a follow up appointment scheduled for 04.07.[address] Sherman - patient did attend appointment.
== END 2021-04-05 04:50 | disposition home or self-care (01) ==
PROVIDERS: Emergency Provider Physician Assistant; PCP Nurse Practitioner Family
DX: N20.1 Calculus of ureter (principal)
CPT/HCPCS: 74176; 80053; 81001; 83690; 85025; 96374; 96375; 96376; 99284; J2405; J3010; J7040; Q0162

== ENCOUNTER 2021-04-07 12:05 | Outpatient (CLI) | payer SELFPAY ==
--- NOTE | 2021-04-07 12:00 | XR_ITS ---
WS: [id number] KUB, AP view, 04/07/2021 Clinical Data: URETEROLITHIASIS Comparison: CT abdomen and pelvis, 04/05/2021. Findings: There may be a 0.5 cm distal right ureteral calculus overlying the right side of the sacrum. Fecal material and colon gas obscure detail over both kidneys. There are clips in the right upper saadia drant from a cholecystectomy XR/XR KUB [id number] Impression: Possible distal right ureteral calculus.
== END 2021-04-07 12:06 | disposition home or self-care (01) ==
LOC: RAD 12:08
PROVIDERS: Visit Provider Urology
DX: N20.1 Calculus of ureter (principal); Z20.822 Contact with and (suspected) exposure to COVID-19
CPT/HCPCS: 74018; 81003; 87635

== ENCOUNTER 2021-04-08 10:37 | Day surgery (SDC) | payer SELFPAY ==
[2021-04-07 15:27] VITALS: BMI 36.2
[2021-04-08] VITALS (7 sets, daily range): BP systolic 131–148; BP diastolic 74–112; PULSE 72–83; RESP 12–92; TEMP 36.1–37; O2SAT 92–99
--- NOTE | 2021-04-08 | SCC_ITS ---
Procedure Done: 1. Cystoscopy, RIGHT: Retrograde, ureteroscopy, laser, stent 29.3 seconds of fluoroscopic guidance, for a cumulative dose of 12.89mGy, was provided to Dr. Sherman by the radiology department. C-arm images of the abdomen were saved for the patient's permanent record. [facility]
--- NOTE | 2021-04-08 | SCC_ITS ---
Procedure Done: 1. Cystoscopy, RIGHT: Retrograde, ureteroscopy, laser, stent 29.3 seconds of fluoroscopic guidance, for a cumulative dose of 12.89 mGy, was provided to Dr. Sherman by the radiology department. C-arm images of the abdomen were saved for the patient's permanent record. [facility]
--- NOTE | 2021-04-08 10:37 | SC_ITS ---
WS: [id number] C-arm fluoroscopy for right ureteral stent, 04/08/2021 Clinical Data: Right ureteroscopy Comparison: KUB, today Findings: Dr. Sherman performed today right retrograde urogram and then inserted a right ureteral stent. There is a small intraureteral defect in the distal right ureter on the right retrograde. SC/C-arm FL for Urology Impression: Insertion right ureteral stent.
--- NOTE | 2021-04-08 10:37 | XR_ITS ---
WS: [id number] KUB, 04/08/2021 Clinical Data: Right distal ureteral stone, preop ureteroscopy Comparison: KUB, 04/07/2021. Findings: The possible right UVJ calculus adjacent to the sacrum is still present. The remainder of the abdomen is not remarkable XR/XR KUB 23206 Impression: No change in possible distal right UVJ calculus
[2021-04-08] MEDS: sodium chloride 0.9% 1,000 ML 30 ML IV (11:21)
--- NOTE | 2021-04-08 11:29 | ANES.PREANE2 ---
Pre-Anesthetic Assessment Pre-Anesthetic Assessment: Height/Weight: Height 1.8 m Weight 117.934 kg Temp Pulse Resp BP Pulse Ox 98 F 83 16 148/112 98 04/08/21 11:08 04/08/21 11:08 04/08/21 11:08 04/08/21 11:08 04/08/21 11:08 Preop Diagnosis: Refractory right distal ureteral stone Proposed Procedure: Operation Date: 04/08/21 12:00 Proposed Procedures p Cystoscopy 03128 20080 60065 N20.1(Not Applicable) - Cameron Sherman MD s Retrograde Pyelogram(Not Applicable) - Cameron Sherman MD s Ureteroscopy(Not Applicable) - Cameron Sherman MD s Ureteral Stent Placement(Not Applicable) - Cameron Sherman MD Familial anesthetic complications: None Was Beta Harish taken within 24 hours: N/A Was Clonidine taken within 24 hours: N/A Last intake: Intake Last Liquid Date 04/08/21 Last Liquid Time 06:45 Last Solid Date 04/07/21 Last Solid Time 19:30 Social: Social History: No alcohol and No tobacco Exam: Pre-Anes Outpt Exam: alert, oriented x 3, clear to auscultation bilaterally and regular rate & rhythm Airway: Cervical ROM: WNL MP: 4 Dentition: Full Metabolic: Metabolic: Morbid obesity Anesthetic Plan: ASA status: 2 Anesthesia: General Risk of > 500 ml blood loss (7ml/kg in children): No Meds/Allergies Current Medications: Current Medications Generic Name Dose Route Start Last Admin Trade Name Freq PRN Reason Stop Dose Admin Sodium Chloride 1,000 mls @ 30 ml s/hr 04/08/21 11:00 04/08/21 11:21 Sodium Chloride 0.9% IV 04/09/21 10:59 30 mls/hr .Q24H GENARO Administration PFSH Anesthesia PFSH: Medical History Right distal ureteral calculus Social History Smoking and tobacco status: former smoker Alcohol intake: never Marital status: Current occupational status: employed History of recent travel: No Data Anesthesia Cardiac Studies: No Data to Display
--- NOTE | 2021-04-08 11:58 | P.HPUD_ITS ---
Surgery/Procedure H&P Update DATE OF PROCEDURE: April 08, 2021 DATE H&P PERFORMED: 04/07/21 H&P UPDATE INFORMATION: I have reviewed H&P completed within last 30 days, I have examined patient prior to procedure, No changes to prior documentation and H&P is in [facility] EMR on date indicated CHANGES TO PREVIOUS DOCUMENTATION: Preoperative KUB confirmed stone still present. PREOP DIAGNOSIS: Refractory right distal ureteral stone PLANNED PROCEDURE: Operation Date: 04/08/21 12:00 Proposed Procedures p Cystoscopy 58493 09431 28254 N20.1(Not Applicable) - Cameron Sherman MD s Retrograde Pyelogram(Not Applicable) - Cameron Sherman MD s Ureteroscopy(Not Applicable) - Cameron Sherman MD s Ureteral Stent Placement(Not Applicable) - Cameron Sherman MD
--- NOTE | 2021-04-08 12:09 | PM.OP ---
Operative Report Date of procedure: April 08, 2021 Pre-op Diagnosis: Refractory right distal ureteral stone Post-op diagnosis: same Procedure Done: 1. Cystoscopy, RIGHT: Retrograde, ureteroscopy, laser, stent Implants: Right ureteral stent Specimens removed/disposition: Stone fragments Pathology: Stone fragments Surgeon: Lane Anesthesia: General Estimated blood loss: Minimal Urine output: Not measured Complications: None Findings: Stone in the expected position. Fragmented with 365 thulium superpulse laser fiber. 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 On follow-up CT scan identified stone was in the same position on KUB. Admitted now for endoscopic treatment of the stone. Procedure: After routine preoperative evaluation examination and obtaining of informed consent he was taken to the operating suite on 04/08/2021 where general anesthesia was administered without difficulty after appropriate timeout was performed, SCDs confirmed to be functioning, preoperative antibiotics administered, beta-silvano protocol confirmed. Prepped and draped in the usual sterile fashion in dorsolithotomy position paying careful attention to avoiding pressure points. 21 Micronesian cystoscope with 30 degree lens was introduced into the urethra meatus and advanced into the bladder under videoscopy. The bladder was systematically examined. No stones were identified. An 8 Micronesian cone-tip catheter was intubated into the right ureteral orifice for right retrograde ureteropyelogram which showed normal ureteral course and caliber below the stone which was identified as a filling defect in the expected position. The stone was actually loose and not impacted in the ureter. The ureter proximal to that point was dilated. No other stones were identified. A flexible tip guidewire was then advanced up the right ureter bypassing the stone in the distal ureter was then dilated with a 15 Micronesian 4 cm balloon to no waist. The wire was secured to the drapes as a safety wire. A 7.5 Micronesian offset semirigid ureteroscope was advanced up the right ureter next to the wire to the level of the stone which was fragmented with a 365 ?m thulium superpulse laser fiber into fragments that were then withdrawn with multiple passes of a parachute basket. Final inspection did show some inflammatory changes and for that reason it was decided to leave the temporary stent indwelling. The cystoscope was then backloaded over the guidewire and a 6 Micronesian by 30 cm double-pigtail stent without string attached distally was advanced over the guidewire through the cystoscope into appropriate position as confirmed via fluoroscopy and cystoscopy. The bladder was drained procedure was completed. Tolerated procedure well without complications and was awakened in the operating room and returned to the recovery room in stable condition. PLANS: 1. Anticipate discharge from outpatient surgery 2. Return to clinic sometime next week for cystoscopy and stent removal.
[2021-04-08] MEDS: levofloxacin-dextrose 5 % 500 MG/100 ML PREMIX 100 MG IV (12:18)
--- NOTE | 2021-04-08 13:25 | P.PCN_ITS ---
PACU note PACU note: VSS, Good respiratory effort, report to ACTUARIAL ASSOCIATE Post-Anesthesia Exam: awake
--- NOTE | 2021-04-08 13:25 | PM.PACU ---
PACU note PACU note: VSS, Good respiratory effort, report to COMMERCIAL LINES MANAGER Post-Anesthesia Exam: awake
--- NOTE | 2021-04-08 13:33 | SUR.PHASEI ---
pt awakes to voice ,pt on ra trial, but quickly back to sleep with good resp effort no distress noted vss.
--- NOTE | 2021-04-08 13:40 | ANE.PACU2 ---
Inpatient post-anesthesia follow up: Airway intact: Yes Vital signs: Temperature 98.6 F Pulse Rate 79 Respiratory Rate 17 Blood Pressure 141/86 Pulse Oximetry 93 Oxygen Delivery Me thod Room Air Oxygen Flow Rate 8 Fraction of Inspir ed Oxygen Hydration adequate: Yes Nausea and vomiting: No Pain level: 1 Mental status: Baseline
[2021-04-13 22:13] LABS: Stone Source RIGHT URETER
== END 2021-04-08 14:29 | disposition home or self-care (01) ==
PROVIDERS: PCP Nurse Practitioner Family; Visit Provider Urology
PROC: 0TJB8ZZ Inspection of Bladder, Via Natural or Artificial Opening Endoscopic (ICD-10-PCS; CPT 52000; principal; 2021-04-08 12:00)
PROC: (CPT 74420; 2021-04-08 12:00)
PROC: 0TJ98ZZ Inspection of Ureter, Via Natural or Artificial Opening Endoscopic (ICD-10-PCS; CPT 52351; 2021-04-08 12:00)
PROC: (CPT 50605; 2021-04-08 12:00)
DX: N20.1 Calculus of ureter (principal); E66.01 Morbid (severe) obesity due to excess calories; Z68.36 Body mass index [BMI] 36.0-36.9, adult; Z87.891 Personal history of nicotine dependence
CPT/HCPCS: 52356; 74018; 76000; 82365; 88300; 96365; C2625; J0330; J1100; J1956; J2250; J3010; J7030

== ENCOUNTER → 2024-10-07 17:47 | Outpatient (BNVA) | payer SELFPAY | PROVIDERS: PCP Nurse Practitioner Family; Visit Provider Family Medicine | DX: R50.9 Fever, unspecified (principal) | CPT/HCPCS: 87400 ==

== ENCOUNTER 2024-10-27 15:22 | Emergency (ER) | payer SELFPAY ==
[2024-10-27] VITALS (29 sets, daily range): BP systolic 151–200; BP diastolic 100–119; PULSE 61–83; RESP 12–21; TEMP 36.6; O2SAT 96–98; BMI 34.8
--- NOTE | 2024-10-27 17:16 | XRR_ITS ---
PROCEDURE INFORMATION: Exam: XR Chest Exam date and time: 10/27/2024 5:19 PM Age: 53 years old Clinical indication: Pain; Chest pressure; Additional info: Chest pain TECHNIQUE: Imaging protocol: Radiologic exam of the chest. Views: 1 view. COMPARISON: CR XR chest 1V portable [id number] 08/28/2020 12:08 PM FINDINGS: Lungs: Visualized lung bases are unremarkable. There is no focal lung consolidation. Pleural spaces: There are no pleural effusions or pneumothorax. Heart/Mediastinum: Heart is normal in size. Bones/joints: Visualized osseous structures are unremarkable. XR/XR chest 1V portable [id number] IMPRESSION: Unremarkable chest radiograph
--- NOTE | 2024-10-27 17:16 | ECG_ITS ---
[facility] 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
[2024-10-27 17:25] LABS: Basophils # 0.1 10^3/uL (0.0-0.1); Basophils % 0.6 %; Eosinophils # 0.3 10^3/uL (0.0-0.8); Eosinophils % 3.6 %; Lymphocytes # 2.2 10^3/uL (0.8-4.8); Mean Corpuscular HGB Conc 33.1 g/dL (30-55); Mean Corpuscular Hemoglobin 28.3 pg (27-33); Mean Corpuscular Volume 85.4 fl (82-101); Mean Platelet Volume 10.2 fL (7.4-10.4); Monocytes # 0.8 10^3/uL (0.2-0.9); Monocytes % 9.6 %; Neutrophils # 4.64 10^3/uL (1.8-7.7); Nucleated Red Blood Cells % 0 %; Platelet Count 289 10^3/cmm (157-399); Red Blood Count 4.92 10^6/uL (3.85-5.65); Red Cell Distribution Width 13.1 % (12.1-15.1); White Blood Count 8.01 10^3/uL (3.29-11.43)
[2024-10-27] MEDS: aspirin 81 mg Chew Tablet 324 MG PO (17:44)
[2024-10-27] MEDS: cloNIDine 0.1 mg Tablet PO (17:44)
[2024-10-27 17:47] LABS: Troponin(5th) Baseline 9 ng/L (0-15)
[2024-10-27 17:57] LABS: Alanine Aminotransferase 14 U/L (0-41); Albumin Level 4.3 g/dL (3.5-5.2); Alkaline Phosphatase 101 U/L (40-130); Anion Gap 13.2 (5-19); Aspartate Amino Transferase 14 U/L (0-40); Blood Urea Nitrogen 10 mg/dL (6-20); Calcium 8.9 mg/dL (8.5-10.5); Carbon Dioxide 28 mmol/L (22-29); Chloride 100 mmol/L (98-107); Creatinine Clr Calc Pharmacy 182.3359; Globulin 2.6 g/dL (1.3-4.6); Glomerular Filtration Rate 140.9 mL/min (90-130); Glucose 90 mg/dL (65-115); NT Pro B Type Natriuretic Pept 93 pg/mL (0-125); Osmolality Calculated 285 mOsm/kg (285-295); Potassium 3.2 mmol/L (3.5-5.1); Sodium 138 mmol/L (136-145); Total Bilirubin 0.4 mg/dL (0.15-1.2); Total Protein 6.9 g/dL (6.6-8.7)
--- NOTE | 2024-10-27 18:40 | ECG_ITS ---
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: : 1970 Requested By: Gianfranco Soler Order Number: [id number] Reading MD: ROSALINDA LORENZO Measurements Intervals [place] Rate: 68 P: 52 VT: 175 QRS: -58 QRSD: 135 T: 36 QT: 433 QTc: 463 Interpretive Statements SINUS RHYTHM INTRAVENTRICULAR CONDUCTION DELAY [130+ ms QRS DURATION] MINIMAL VOLTAGE CRITERIA FOR LVH, CONSIDER NORMAL VARIANT [MEETS CRITERIA IN ONE OF: R(aVL), S(V1), R(V5), R(V5/V6)+S(V1)] Compared to ECG 10/27/2024 17:29:10 No significant changes Electronically Signed On 10-28-2024 22:22:13 CDT by ROSALINDA LORENZO [email or web address]
[2024-10-27 19:48] LABS: Troponin 5 2HR 8.68 ng/L (0-15)
[2024-10-27 19:56] LABS: Troponin 5 2HR Delta -0.32 ABS# (0-10)
--- NOTE | 2024-10-27 21:00 | ED_ITS ---
HPI - Dizziness 2 General: Chief Complaint: Dizziness Stated Complaint: high bp Time Seen by Provider: 10/27/24 16:21 History of Present Illness: HPI Narrative: This patient is a 53-year-old white male who presents to the emergency department with high blood pressure. Patient states he felt dizzy all day today and did have an episode of chest pain. He is not having any chest pain at this time. Patient states he has a history of high blood pressure but is not currently on any medications for it. He states he has tried many different medications that do not work. Associated symptoms: Reports chest pain Related Data Previous Rx's ?Medication ?Instructions ?Recorded oseltamivir 75 mg capsule (Tamiflu) 75 mg PO BID 5 day s #10 caps 10/07/24 spironolactone 25 mg tablet 25 mg PO DAILY #30 tabs hydrochlorothiazide 12.5 mg capsule 12.5 mg PO DAILY # 30 caps 10/27/24 lisinopril 20 mg tablet 20 mg PO DAILY #30 tabs 05/15 Allergies Allergy/AdvReac Type Severity Reaction Status Date / Time No Known Allergies Allergy Verified 10/07/24 17:20 Review of Systems 2 General: Reports: 10 or more systems reviewed and unremarkable except in HPI and below Card: Reports: chest pain Neuro: Reports: dizziness PFSH ED 2 PFSH: Medical History Urolithiasis Right distal ureteral calculus Social History Smoking and tobacco/nicotine status: former use of tobacco/nicotine Alcohol intake: never Marital status: Current occupational status: employed Physical Exam 2 Const: COMMON NORMALS: no acute distress, patient oriented x3 and no limitations GENERAL APPEARANCE: cooperative and comfortable HENMT: COMMON NORMALS: normocephalic, atraumatic, Normal nasal mucous membranes and turbinates present, moist oral mucous membranes and oropharynx normal HEAD & SCALP: normal to inspection, normocephalic and atraumatic F KIRK & SINUS: normal facial exam NOSE: Normal nasal mucous membranes and turbinates present Eye: COMMON NORMALS: Equal, round and reactive pupils present, EOMs intact bilaterally and conjunctivae normal GENERAL EYE: appearance normal, both eyes and all related structures CONJUNCTIVA: Yes conjunctivae normal PUPIL: Yes Equal, round and reactive pupils present Neck/C-Spine: COMMON NORMALS: supple and no JVD Chest: COMMONS NORMALS: normal inspection of the chest Resp: COMMON NORMALS: normal respiratory effort and clear to auscultation bilaterally AUSCULTATION: clear to auscultation bilaterally Cardio: COMMON NORMALS: no JVD, regular rate, regular rhythm, No gallops present (Cardio), No murmurs present (Cardio) and No rub (Cardio) RATE: r egular rate RHYTHM: regular rhythm GI: COMMON NORMALS: Normal to inspection, nondistended, normoactive bowel sounds present, Soft to palpation and non-tender AUSCULTATION: Yes normoactive bowel sounds PALPATION: Yes Soft to palpation : COMMON NORMALS: Yes no CVA tenderness BLADDER/KIDNEY EXAM: Yes no CVA tenderness Back/Pelvis: COMMON NORMALS: no CVA tenderness and thoracic and lumbar spine normal to inspection Extremity: COMMON NORMALS: normal to inspection Neuro: COMMON NORMALS: patient oriented x3 and CN's II-XII intact bilaterally Psych: COMMON NORMALS: mental status grossly normal, Normal thought process present and cooperative THOUGHT PROCESS: Normal thought process present Skin: COMMON NORMALS: no rashes or lesions noted, turgor normal and no jaundice GENERAL SKIN EXAM: no rashes or lesions noted and turgor normal Course 2 Vital Signs: Vital signs: Vital Signs Temperature 97.8 F 10/27/24 15:24 Pulse Rate 71 10/27/24 18:30 Respiratory Rate 17 10/27/24 18:30 Blood Pressure 192/119 10/27/24 18:30 Pulse Oximetry 98 10/27/24 18:30 Oxygen Delivery Me thod Room Air 10/27/24 15:24 MDM - Dizziness Medical Decision Making EKG revealed normal sinus rhythm with no ST segment abnormalities. Chest x-ray was normal. CBC and CMP normal. BNP was 93. Troponin 9 with a 2-hour level of 8.7. Patient was given 324 mg of aspirin and 0.1 mg clonidine p.o. Blood pressure came down to the 160s. Patient asymptomatic throughout his ER stay. I will place the patient on lisinopril 20 mg/day and hydrochlorothiazide 12.5 mg/day and he was given his first doses in the emergency department. Recommended he take 81 mg of aspirin per day. Recommended he check his blood pressure 3 times per day and follow-up with his primary care physician in 1 week for ongoing management of his hypertension. He will also need a cardiac stress test ordered. He was discharged with his in stable condition. Lab Data 10/27/24 16:55 10/27/24 16:55 Radiology Impressions Chest X-Ray 10/27/24 17:16 IMPRESSION: Unremarkable chest radiograph Laboratory Results WBC 8.01 10^3/uL (3.29-11.43) 10/27/24 16:55 RBC 4.92 10^6/uL (3.85-5.65) 10/27/24 16:55 Hgb 13.90 g/dL (11.27-16.99) 10/27/24 16:55 Hct 42.0 % (37-53) 10/27/24 16:55 MCV 85.4 fl (82-101) 10/27/24 16:55 MCH 28.3 pg (27-33) 10/27/24 16:55 MCHC 33.1 g/dL (30-55) 10/27/24 16:55 RDW 13.1 % (12.1-15.1) 10/27/24 16:55 Plt Count 289 10^3/cmm (157-399) 10/27/24 16:55 MPV 10.2 fL (7.4-10.4) 10/27/24 16:55 Neut % (Auto) 58.0 % 10/27/24 16:55 Lymph % (Auto) 28.0 % 10/27/24 16:55 [place] % (Auto) 9.6 % 10/27/24 16:55 Eos % (Auto) 3.6 % 10/27/24 16:55 Baso % (Auto) 0.6 % 10/27/24 16:55 Neut # (Auto) 4.64 10^3/uL (1.8-7.7) 10/27/24 16:55 Lymph # (Auto) 2.2 10^3/uL (0.8-4.8) 10/27/24 16:55 [place] # (Auto) 0.8 10^3/uL (0.2-0.9) 10/27/24 16:55 Eos # (Auto) 0.3 10^3/uL (0.0-0.8) 10/27/24 16:55 Baso # (Auto) 0.1 10^3/uL (0.0-0.1) 10/27/24 16:55 Nucleated RBC % (auto) 0 % 10/27/24 16:55 Nucleated RBCs # 0.0 /100WBC 10/27/24 16:55 Sodium 138 mmol/L (136-145) 10/27/24 16:55 Potassium 3.2 mmol/L (3.5-5.1) L 10/27/24 16:55 Chloride 100 mmol/L (98-107) 10/27/24 16:55 Carbon Dioxide 28 mmol/L (22-29) 10/27/24 16:55 Anion Gap 13.2 (5-19) 10/27/24 16:55 BUN 10 mg/dL (6-20) 10/27/24 16:55 Creatinine 0.6 mg/dL (0.7-1.2) L 10/27/24 16:55 GFR Calculation 140.9 mL/min (90-130) H 10/27/24 16:55 Glucose 90 mg/dL (65-115) 10/27/24 16:55 Calculated Osmolality 285 mOsm/kg (285-295) 10/27/24 16:55 Calcium 8.9 mg/dL (8.5-10.5) 10/27/24 16:55 Total Bilirubin 0.4 mg/dL (0.15-1.2) 10/27/24 16:55 AST 14 U/L (0-40) 10/27/24 16:55 ALT 14 U/L (0-41) 10/27/24 16:55 Alkaline Phosphatase 101 U/L (40-130) 10/27/24 16:55 Troponin T Baseline 9 ng/L (0-15) 10/27/24 16:55 Troponin T 120 Minute 8.68 ng/L (0-15) 10/27/24 19:15 Delta Troponin T -0.32 ABS# (0-10) L 10/27/24 19:15 NT-Pro-B Natriuret Pep 93 pg/mL (0-125) 10/27/24 16:55 Total Protein 6.9 g/dL (6.6-8.7) 10/27/24 16:55 Albumin 4.3 g/dL (3.5-5.2) 10/27/24 16:55 Globulin 2.6 g/dL (1.3-4.6) 10/27/24 16:55 All radiology interpretation(s) finalized by discharge Discharge Plan Discharge Patient Disposition: Home Clinical Impression: Hypertension Qualifiers: Hypertension type: primary hypertension Qualified Code(s): I10 - Essential (primary) hypertension Chest pain Qualifiers: Chest pain type: unspecified Qualified Code(s): R07.9 - Chest pain, unspecified Condition: Stable Prescriptions: New lisinopril 20 mg tablet 20 mg PO DAILY Qty: 30 0RF hydrochlorothiazide 12.5 mg capsule 12.5 mg PO DAILY Qty: 30 0RF No Action oseltamivir [Tamiflu] 75 mg capsule 75 mg PO BID 5 Days Qty: 10 0RF spironolactone 25 mg tablet 25 mg PO DAILY Qty: 30 0RF Discharge Orders: Discharge ED (Routine); Ordered 10/27/24 Ordered By: Gianfranco Soler Referrals: Hoa Torres FNP [Primary Care Provider] - Patient Instructions: Hypertension, Chest Pain (DC) Activity Restrictions/Additional Instructions: Follow-up with your primary care provider within 1 week for ongoing management of your hypertension. You may also need them to schedule a cardiac stress test. Take 1 baby aspirin per day. Print Language: Ghanaian Coding Level of Care Code ED [employer]or for Isidro Barber
[2024-10-27] MEDS: hydroCHLOROthiazide 25 mg Tablet 12.5 MG PO (21:10)
[2024-10-27] MEDS: lisinopril 20 mg Tablet PO (21:10)
== END 2024-10-27 21:15 | disposition home or self-care (01) ==
PROVIDERS: Emergency Provider Emergency Medicine; PCP Nurse Practitioner Family
DX: I10 Essential (primary) hypertension (principal); R07.9 Chest pain, unspecified; Z87.891 Personal history of nicotine dependence
CPT/HCPCS: 36415; 71045; 80053; 83880; 84484; 85025; 93005; 99285

== ENCOUNTER 2024-11-18 14:47 | Outpatient (CLI) | payer SELFPAY | END 2024-11-18 14:48 | disposition home or self-care (01) | PROVIDERS: PCP Nurse Practitioner Family; Visit Provider Nurse Practitioner Family | DX: I10 Essential (primary) hypertension (principal) | CPT/HCPCS: 80053; 80061; 84443; 85025 ==

== ENCOUNTER 2024-11-20 09:34 | Outpatient (CLI) | payer SELFPAY ==
--- NOTE | 2024-11-20 09:45 | USCV_ITS ---
Eran Humphrey Age: 53 Gender: M : 1970 Exam Date: 11/20/2024 09:43 Ordering Phys: Carine Martinez Technologist: R Exam Location: [facility] [place] Indication: HTN Aortic Velocity @ SMA (cm/s) 149 RIGHT KIDNEY LEFT KIDNEY Velocity (cm/s) Velocity (cm/s) Sys/Madrid Sys/Madrid Resistive Index Resistive Index 67.3 / 25.9 0.62 Proximal Renal Artery 112.7 / 52.8 0.53 70.1 / 28.7 0.59 Mid Renal Artery 138.1 / 59.7 0.57 94.2 / 37.4 0.60 Distal Renal Artery 121.9 / 57.4 0.53 82.0 / 27.6 0.66 Hilar 119.8 / 53.5 0.55 39.3 / 15.8 0.17 Upper Pole 31.3 / 10.6 0.66 29.1 / 9.3 0.68 Mid Pole 28.1 / 11.2 0.22 33.9 / 19.8 0.66 Lower Pole 31.0 / 14.3 0.54 0.63 Renal Aortic Ratio 0.93 Accleration Time (sec) 0.21 Hilar 0.22 0.17 Upper Pole 0.17 0.17 Mid Pole 0.22 0.18 Lower Pole 0.20 12.2 Kidney Length (cm) 11.8 FINDINGS No comparison. Normal size kidneys. No evidence of abdominal aortic aneurysm. There is no evidence of hemodynamically significant right renal artery stenosis. There is no evidence of hemodynamically significant left renal artery stenosis. CONCLUSIONS There is no sonographic evidence of hemodynamically significant renal artery stenosis bilaterally. Dr. Adele Ryan DO (Electronically Signed) Final Date: 20 November 2024 12:36 S
== END 2024-11-20 09:35 | disposition home or self-care (01) ==
LOC: RAD 09:37
PROVIDERS: PCP Nurse Practitioner Family; Visit Provider Nurse Practitioner Family
DX: I10 Essential (primary) hypertension (principal)
CPT/HCPCS: 93975

== ENCOUNTER 2025-02-04 12:11 | Outpatient (CLI) | payer SELFPAY ==
--- NOTE | 2025-02-04 | ECG_ITS ---
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 Interpretive Statements Lung unchanged pre/post procedure; Intraprocedure shortess of breath; Symptoms resoled by discharge PROCEDURE: At the baseline, the patient's blood pressure was 151/101 with a heart rate of 88. The baseline electrocardiogram showed normal sinus rhythm with normal ST-Ts. Left axis deviation. The patient exercised for 6 minutes and 11 seconds on a standard Hunter protocol. Patient attained a maximum heart rate of 166 beats per minute(90% of the maximum predicted heart rate) with a blood pressure at the peak exercise of 213/85mm Hg. The EKG at the peak exercise revealed. Patient did not have any chest pain or any significant cardiac arrhythmias with the exercise During the recovery phase, there were no new changes. Blood pressure at the end of the recovery phase was 162/87 mm Hg with a heart rate of 93 per minute. CONCLUSION: 1. Normal EKG response to treadmill exercise 2. No exercise-induced chest pain or cardiac arrhythmia 3. Slightly impaired exercise tolerance, attained a maximum of 10.2 METs 4. Hypertensive response to exercise Electronically Signed On 02-09-2025 22:29:19 CDT by Li Rodriguez M.D. [email or web address]
[2025-02-04 12:22] VITALS: BMI 33.9
--- NOTE | 2025-02-04 12:23 | USCV_ITS ---
Eran Humphrey Age: 54 Gender: M : 1970 Exam Date: 02/04/2025 12:33 Ordering Phys: Li Rodriguez MD ([email or web address]) Technologist: Exam Location: [facility] – [place] Indication: cp Rhythm: Sinus Patient History: cp Cardiac Medications: Medications in past 24 hours: Contrast: Stress Results Protocol: Hunter Total dose(mL): Exercise Duration (min:sec): 6:11 METS: 10.2 Resting HR: 83 Resting BP: 151 / 101 Peak HR: 94 Peak BP: 162 / 87 Max Predicted HR: 166 57 % Max Predicted HR Target HR: 141 Double Product: [id number] Stress Summary: The patient's target heart rate was achieved The hemodynamic response to exercise was normal BP Response: Normal Reason for Termination: Fatigue Cardiac Symptoms: None ECG Analysis Resting ECG: Please see separate report Stress ECG: Please see separate report Arrhythmia: Please see separate report MEASUREMENTS (Male/Female) Normal Values FINDINGS The baseline echocardiogram revealed normal LV size and ejection fraction. Segmental wall motion analysis revealed no gross wall motion abnormalities. No pericardial effusion. Aortic and the mitral valve morphology appeared to be normal With the peak exercise, there was good augmentation of all the segment no exercise-induced wall motion abnormalities During the recovery phase, the wall motion returned back to the base line CONCLUSIONS 1. Normal echocardiographic response to treadmill exercise 2. Low probability for coronary ischemia, based on the above findings. Dr Li Rodriguez MD [facility] (Electronically Signed) Final Date: 07 February 2025 15:56 S
[2025-02-04 13:00] VITALS: BP 162/87; PULSE 94
== END 2025-02-04 12:12 | disposition home or self-care (01) ==
LOC: CDL 12:12
PROVIDERS: PCP Nurse Practitioner Family; Visit Provider Internal Medicine Cardiovascular Disease
DX: R07.9 Chest pain, unspecified (principal); R93.1 Abnormal findings on diagnostic imaging of heart and coronary circulation
CPT/HCPCS: 93017; 93350